=== PATIENT | male | born 1960 | race Caucasian/White ===

== ENCOUNTER 2017-12-16 17:21 | Outpatient (CLI) | payer OTHER ==
--- NOTE | 2017-12-16 18:21 | RAD ---
CHEST TWO VIEW 12/16/17 HISTORY: Shortness of breath. COMPARISON: None. FINDINGS: Lungs are clear. No pneumothorax or effusion. The cardiac silhouette and mediastinal contours are wit hin normal limits. Well defined nodule lateral aspect of the left midline likely a calcified granulom a. IMPRESSION: 1. No acute intrathoracic abnormality. 2. Likely a calcified granuloma in the left lateral mid lung. Followup radiographs can be obtain ed in six months. POS: [facility]
== END 2017-12-16 17:22 | disposition home or self-care (01) ==
LOC: SCSRAD 17:21
PROVIDERS: ATTEND Family Medicine
DX: R06.09 Other forms of dyspnea (principal)
CPT/HCPCS: 36415; 71046; 80053; 83036; 83880; 84439; 84443; 85025; 88305

== ENCOUNTER 2017-12-23 10:28 | Outpatient (CLI) | payer OTHER ==
[~2017-12-23 10:28] MED LIST: Iopamidol 370 76% 100 ML VIAL ONE
--- NOTE | 2017-12-23 12:47 | CT ---
CT ANGIOGRAM THORAX WITH IV CONTRAST AND 3D RECONSTRUCTIONS: Date: 12-23-17 History: Shortness of breath on exertion. Symptoms have been present for several months and are now w orsening. Comparison: None available. FINDINGS: No filling defects are seen in the central or segmental pulmonary arteries to suggest pulmonary embol us. There is moderate atherosclerotic plaque and atherosclerotic vascular calcifications seen in the thoracic aorta, but no thoracic aortic dissection or aneurysm is present. Mediastinal structures have a normal appearance and there is no evidence of lymphadenopathy. There is evidence of prior granulomatous disease with calcified left hilar lymph nodes, calcified gra nulomata left lung base and multiple calcified granulomata throughout the spleen. There is a 4 mm pulmonary nodule in the medial aspect of the right upper lobe just posterior to the r ight mainstem bronchus. No additional pulmonary nodule or mass is seen and the lungs are otherwise cl ear. Mild degenerative changes are seen in the spine. IMPRESSION: 1. No CT evidence of pulmonary embolism involving the central or segmental pulmonary arteries. 2. Mild atherosclerotic plaque and calcifications in the thoracic aorta, but no aneurysm or dissectio n is present. 3. Nonspecific 4 mm pulmonary nodule right upper lobe. POS: [facility]
== END 2017-12-23 10:29 | disposition home or self-care (01) ==
LOC: SCSCT 10:28
PROVIDERS: ATTEND Family Medicine
DX: I70.0 Atherosclerosis of aorta (principal); R91.1 Solitary pulmonary nodule
CPT/HCPCS: 71275

== ENCOUNTER 2018-01-05 12:29 | Outpatient (CLI) | payer OTHER | END 2018-01-05 12:30 | disposition home or self-care (01) | LOC: ULT 12:29 | PROVIDERS: ATTEND Internal Medicine Cardiovascular Disease | DX: I08.3 Combined rheumatic disorders of mitral, aortic and tricuspid valves (principal); R00.0 Tachycardia, unspecified; R07.89 Other chest pain; R06.02 Shortness of breath | CPT/HCPCS: 93306 ==

== ENCOUNTER 2018-02-10 13:53 | Outpatient (CLI) | payer OTHER ==
--- NOTE | 2018-02-10 14:58 | RAD ---
RIGHT FOOT THREE VIEWS: HISTORY: Right foot pain. FINDINGS: Lisfranc joint alignment is anatomic. Pes planus on the lateral view. Mild to moderate osteophytosi s throughout the foot. No acute fracture, dislocation, or aggressive osseous erosions. IMPRESSION: Mild osteoarthritic changes, right foot. POS: [facility]
== END 2018-02-10 13:54 | disposition home or self-care (01) ==
LOC: SCSRAD 13:53
PROVIDERS: ATTEND Family Medicine
DX: M79.671 Pain in right foot (principal); M19.071 Primary osteoarthritis, right ankle and foot

== ENCOUNTER 2018-04-15 12:35 | Outpatient (CLI) | payer OTHER | END 2018-04-15 12:36 | disposition home or self-care (01) | LOC: CP 12:35 | PROVIDERS: ATTEND Internal Medicine Critical Care Medicine | DX: R06.09 Other forms of dyspnea (principal) | CPT/HCPCS: 94060; 94727; 94729 ==

== ENCOUNTER 2020-04-05 13:56 | Outpatient (CLI) | payer OTHER ==
--- NOTE | 2020-04-05 14:50 | RAD ---
RADIOGRAPH CHEST 2 VIEWS: DATE: 04/05/2020 HISTORY: 60-year-old male follow-up pulmonary nodule FINDINGS: The lungs are clear of infiltrates, edema, and bullous disease. The cardiomediastinal silhouette and hilar shadows appear normal. There is no pleural effusion or pneumothorax. No osseous abnormality is identified. There is a tiny calcified granuloma in the superior segment of left lower lobe, unchan ged since chest radiograph of 12/16/2017. The tiny noncalcified pulmonary nodule measuring 4 mm to the right mainstem bronchus on the CT of 12/21/2009, with be too small to visualize on plain radiograp h, given its central location, overlapping right hilum. No interval change overall in the appearance of the study compared to 12/16/2012 plain radiograph. IMPRESSION: No active disease.
== END 2020-04-05 13:57 | disposition home or self-care (01) ==
LOC: SCSRAD 13:56
PROVIDERS: ATTEND Family Medicine
DX: R91.1 Solitary pulmonary nodule (principal)
CPT/HCPCS: 71046

== ENCOUNTER 2020-04-26 12:40 | Outpatient (CLI) | payer OTHER ==
--- NOTE | 2020-04-26 13:30 | CT ---
CT CHEST WITHOUT CONTRAST CLINICAL INDICATION: Follow-up pulmonary nodule COMPARISON: 12/23/2017 FINDINGS: Aorta: Limited evaluation due to lack of intravenous contrast. Vascular calcifications are seen in th e thoracic and visualized upper abdominal aorta which is normal in caliber Lungs: A 4 mm pulmonary nodule seen in the lateral aspect right middle lobe which is stable in size c ompared to prior study. There is also a stable approximate 4 mm pleural-based nodular density at the medial aspect left upper lobe just posterior to the right mainstem bronchus which is also stable in size compared to prior exam. A stable approximately 3 mm pleural-based nodular density is seen in the posterior medial aspect left lower lobe also a stable finding. Calcified granulomata are seen in the left lower lobe. No pleural effusion is identified. Mediastinum: Limited secondary to lack of intravenous contrast, but no enlarged lymph nodes are seen by CT size criteria. Calcified left hilar lymph nodes are present related to prior granulomatous disease. Thyroid gland: Normal nonenhanced CT appearance. Osseous structures: No suspicious lytic or sclerotic osseous lesions are identified. Chest wall: No abnormality visualized. Upper abdomen: Calcified granulomata are again seen in the spleen. IMPRESSION: 1. Stable nonspecific 4 mm pulmonary nodule right middle lobe with stable tiny pleural-based 4 mm nod ule medial right upper lobe and posteromedial left lung base. No new pulmonary nodule or mass is seen. 2. No acute findings on this nonenhanced CT thorax.
== END 2020-04-26 12:41 | disposition home or self-care (01) ==
LOC: SCSCT 12:40
PROVIDERS: ATTEND Family Medicine
DX: R91.1 Solitary pulmonary nodule (principal)
CPT/HCPCS: 71250

== ENCOUNTER 2020-12-10 06:35 | Emergency (ER) | payer OTHER | END 2020-12-10 09:20 | disposition home or self-care (01) | LOC: ERS 06:35 | DX: S62.336A Displaced fracture of neck of fifth metacarpal bone, right hand, initial encounter for closed fracture (principal); I10 Essential (primary) hypertension; E78.5 Hyperlipidemia, unspecified; M10.9 Gout, unspecified; W22.01XA Walked into wall, initial encounter | CPT/HCPCS: 26600 ==